=== PATIENT | male | born 1965 | race Caucasian/White ===

== ENCOUNTER 2020-12-12 07:54 | Day surgery (SDC) | payer OTHER ==
[2020-12-06 13:22] VITALS: BMI 27.6
[2020-12-12] MEDS ORDERED: PROPOFOL 20 ML ONE ×2 (07:59)
[2020-12-12] MEDS ORDERED: LIDOCAINE HCL/PF 2% SDV 5ML VIAL ONE (07:59)
[2020-12-12 08:27] VITALS: TEMP 98.2
[2020-12-12 09:40] VITALS: BP 100/66; PULSE 56
== END 2020-12-12 09:45 | disposition home or self-care (01) ==
LOC: FASU-ENDO 07:54
PROVIDERS: ATTEND Internal Medicine Gastroenterology
PROC: 0DB78ZX Excision of Stomach, Pylorus, Via Natural or Artificial Opening Endoscopic, Diagnostic (ICD-10-PCS; 2020-12-12)
PROC: 0DB98ZX Excision of Duodenum, Via Natural or Artificial Opening Endoscopic, Diagnostic (ICD-10-PCS; principal; 2020-12-12 08:55)
DX: K29.70 Gastritis, unspecified, without bleeding (principal); K21.9 Gastro-esophageal reflux disease without esophagitis; K29.80 Duodenitis without bleeding
CPT/HCPCS: 88305-TC; 88342-TC